=== PATIENT | male | born 1940 | race Caucasian/White ===

== ENCOUNTER → 2017-12-15 | Day surgery (SDC) | payer MEDICARE ==
[~2017-12-15] MED LIST: ASPIR 8181 MG PO; BUPIVACAINE HCL 0.5% INJ 30 ML VIAL INJ ONE; CEFAZOLIN SOD 2 GM/D5W 50ML 50 ML IV ONE; LISINOPRIL-HCT1 EAC1 PO; PRAVASTATIN PO; SYNTHROID100 MCG PO
--- NOTE | 2017-12-21 12:03 | Operative Report ---
DATE OF PROCEDURE: December 15, 2017 PREOPERATIVE DIAGNOSES 1. Right knee medial meniscus tear, 2. Right knee degenerative joint disease of the knee. POSTOPERATIVE DIAGNOSES 1. Right knee medial meniscus tear. 2. Right knee degenerative joint disease of the knee. OPERATIONS/PROCEDURES PERFORMED 1. Right knee exam under anesthesia. 2. Right knee arthroscopy. 3. Right knee partial medial meniscectomy. 4. Right knee chondroplasty of patella or trochlea of the medial femoral condyle and medial tibial plateau, the lateral femoral condyle, and lateral tibial plateau. 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 ANESTHESIA: General endotracheal intubation anesthesia. IV FLUIDS: Per anesthesia record. DESCRIPTION OF PROCEDURE: Mr. Doe was taken to the operating room, placed in supine position on the operating table. Following induction of general anesthesia as well as endotracheal intubation, the patient's right lower extremity was examined under anesthesia. He was found to have a mild effusion within the knee joint, but otherwise ligamentously stable knee. The patient's lower extremity was prepped and draped in standard surgical fashion. A 2 portal technique used to provide this patient arthroscopic evaluation of the knee joint. Examination of the suprapatellar pouch and medial and lateral gutters found no evidence of loose bodies. There was, however, evidence of chondromalacia of the patellar and trochlear surfaces. The scope was advanced in the medial compartment and examination of the medial compartment demonstrated a torn medial meniscus. There was also chondromalacia of the articulating surfaces. A combination of biting forceps and a motorized shaver used to resect the torn portion of meniscus. Chondroplasties of the medial femoral condyle and medial tibial plateau were performed at this time. Scope was then advanced into intracondylar notch and the anterior cruciate ligament was identified and found to be intact. Scope was advanced in the lateral compartment and there was chondromalacia of the articulating surfaces. A chondroplasty of the lateral femoral condyle and lateral tibial plateau was performed at this time. Scope was then placed in the suprapatellar pouch and chondroplasty of the patella and trochlea were performed. The knee was deflated of its sterile normal saline. Each of the portal sites were closed using 4-0 nylon suture. Portal sites as well as knee itself were then injected with 0.5% Marcaine with epinephrine. Sterile dressings were applied and the patient was then awakened and taken to postanesthesia care unit in stable condition. Job#: [id number]
== END | disposition home or self-care (01) ==
LOC: OR 15:48
PROVIDERS: ATTEND Specialist
DX: S83.221A Peripheral tear of medial meniscus, current injury, right knee, initial encounter (principal); M17.11 Unilateral primary osteoarthritis, right knee; M22.41 Chondromalacia patellae, right knee; C80.1 Malignant (primary) neoplasm, unspecified; I25.2 Old myocardial infarction; I25.10 Atherosclerotic heart disease of native coronary artery without angina pectoris; R03.0 Elevated blood-pressure reading, without diagnosis of hypertension; E78.00 Pure hypercholesterolemia, unspecified; E07.9 Disorder of thyroid, unspecified; X58.XXXA Exposure to other specified factors, initial encounter; Z79.82 Long term (current) use of aspirin; Z95.5 Presence of coronary angioplasty implant and graft
CPT/HCPCS: 29881; 36415; 71046; 80048; 85025; 93005; J1100; J1885; J2001; J2405